=== PATIENT | male | born 1980 ===

== ENCOUNTER 2018-07-28 13:16 | Day surgery (SDC) | payer BC ==
[~2018-07-28] VITALS: Ht 172.7 cm; Wt 98.4 kg
[2018-07-28 14:13] VITALS: BP 138/91; PULSE 79; TEMP 97
[2018-07-28] MEDS ORDERED: WELLBUTRIN SR150 M1 PO (14:13)
[2018-07-28 15:05] VITALS: BP 105/78; PULSE 84; TEMP 97.1
--- NOTE | 2018-07-28 15:05 | NUR ---
PT AMBULATES FROM CART TO BAY 4 WITH ASSISTANCE. PT DENIES C/O. VITAL SIGNS STABLE. CALL LIGHT NEXT TO PT.
[2018-07-28 15:20] VITALS: BP 108/79; PULSE 77
--- NOTE | 2018-07-28 15:20 | NUR ---
PT RESTING IN CHAIR IN PT ROOM. CALL LIGHT NEXT TO PT. VITAL SIGNS STABLE.
[2018-07-28 15:35] VITALS: BP 104/78; PULSE 71
--- NOTE | 2018-07-28 15:35 | NUR ---
PT RESTING. PT DENIES C/O. VITAL SIGNS STABLE. CALL LIGHT NEXT TO PT.
--- NOTE | 2018-07-28 15:43 | NUR ---
Dr. Pierson at the bedside.
--- NOTE | 2018-07-28 15:45 | NUR ---
Report received from GIOVANA Mast at this time.
[2018-07-28 15:50] VITALS: BP 129/85; PULSE 86
--- NOTE | 2018-07-28 15:50 | NUR ---
VSS and WNL on room air. Patient resting comfortably in room. Denies any pain or nausea.
[2018-07-28 16:05] VITALS: BP 136/80; PULSE 76
--- NOTE | 2018-07-28 16:05 | NUR ---
VSS and WNL on room air. Denies any pain or nausea.
--- NOTE | 2018-07-28 16:24 | NUR ---
Discharge criteria has been met. Discharge instructions discussed, denies any questions, and verbalizes understanding. PIV removed with catheter intact and hemostasis achieved. Patient changes to clothing independently. Instructed to picker / packer prescription at preferred pharmacy. Escorted to exit, gait steady. Discharged to home with ride in private vehicle at 1624.
== END 2018-07-28 16:24 | disposition home or self-care (01) ==
LOC: SDCO 13:16
DX: K21.9 Gastro-esophageal reflux disease without esophagitis (principal); Z86.19 Personal history of other infectious and parasitic diseases
CPT/HCPCS: J2250; J2405; J3010; J7030

== ENCOUNTER → 2018-12-15 | Outpatient (CLI) | payer BC ==
[~2018-12-15] MED LIST: WELLBUTRIN SR150 M1 PO
== END ==
LOC: COL.RAD 10:00
DX: K76.0 Fatty (change of) liver, not elsewhere classified (principal)